=== PATIENT | female | born 1960 | race Caucasian/White ===

== ENCOUNTER 2017-06-23 09:34 | Emergency (ER) | payer OTHER ==
[~2017-06-23] VITALS: Ht 167.6 cm; Wt 45.5 kg
[2017-06-23 09:35] VITALS: BP 129/80; PULSE 98; RESP 16; O2SAT 98
--- NOTE | 2017-06-23 10:00 | ED.REPORT ---
HPI-Dental/Mouth Prob Date of Service Jun 23, 2017 ED Provider: Srikanth Mendoza MD Pt is a 56 year old female presenting to the ED for suture removal. She had 8 teeth removed about 10 days ago, and now complains of gum pain. She wanted to have her sutures removed by her PCP but when she called to make an appointment, they informed her that he doesn't work there any longer and she couldn't get in until July 07. Denies any fever, chills, nausea, vomiting, SOB or wheezing. Nursing Notes Stated Complaint: SUTURE REMOVAL Chief Complaint: Dental Nursing Notes Reviewed: Yes (Tranz not reconciled) Allergies: Coded Allergies: No Known Allergies (Unverified , 06/23/17) General Time Seen by MD: 09:47 Chief Complaint Mouth pain Hx Obtained From: Patient Arrived By: Walk-in Onset Occurred: More than a week ago... (10 days) Symptom Duration: Since onset Quality: Painful Severity: Current: Mild Severity: Maximum: Mild Recent Healthcare: No recent doctor visit, No recent hospitalization Similar Sx Previous: No Past Medical History Past Medical History denies Past Surgical History denies Smoking History Unknown if Ever Smoker Ambulatory Status Independent Review of Systems Constitutional: Denies: Chills, Fever Ears / Nose / Throat: Reports: Mouth pain Respiratory: Denies: Shortness of breath, Wheezing GI: Denies: Nausea, Vomiting Complete sys rev & neg: except as marked. Physical Exam Initial Vital Signs Vital Signs (First) Date Time Temp Pulse Resp B/P Pulse Ox O2 Delivery O2 Flow Rate FiO2 06/23/17 09:35 36.1 98 16 129/80 98 Room Air Initial VS: Reviewed, Vital signs normal Head / Eyes: Atraumatic, Normocephalic, PERRL Respiratory: Breath sounds normal, Clear to auscultation, No respiratory distress Cardiovascular: Intact distal pulses Abdomen / GI: No distention Extremities: Vascular intact, Neuro intact, No swelling, No tenderness Skin: Warm, Dry, No cyanosis Neurologic: Alert, Oriented, Nonfocal Psychiatric: Mood/affect normal, Behavior normal, Normal thought content ENT: Atraumatic, Airway patent, Mucous membranes moist Sutures on gumline and incisor of lower mandible. No signs of infection. Sutures removed uneventfully. Neck: Atraumatic, Supple General/Constitutional: Awake, Alert, No acute distress Appearance / Presentation: Positive: Cachectic Re-Eval/Medical Decision Med Decision/Clinical Course This is a 56-year-old female had dental work done a while ago in [facility], was told she could follow-up with her doctors office to have the sutures removed. However has retired, and the new doctor indicated they would not perform this service. She went to urgent care and indicated they would not do the sutures, she called the dentist indicates she should come to the emergency department. She has no additional complaints except simply need to have the sutures removed. She can get back into her dentist until the 30 of this month. On exam she has healing sutures of the lower incisors. These are removed uneventfully. Wound care is discussed. Patient is discharged in stable condition Source of Hx: Old records Re-Evaluation/Progress : Time of Eval: 10:05 Patient Status: Condition improved Re-Evaluation/Progress Note: Removed sutures. Pt tolerated procedure well. Discussed plan for discharge. Pt understands and agrees with plan. Differential Diagnosis: Negative: Abscess dental, Acute nec ulcer gingivit, Alveolar fracture, Facial cellulitis, Frenulum laceration, Hand, foot, mouth disease Counseled Regarding: Diagnosis, Lab results, Need for follow-up, When/why to return to ED Discharge & Departure Primary Impression: Encounter for removal of sutures Disposition: Home Discharge Condition All VS Reviewed: Yes Condition: Improved Additional Instructions: 1. The sutures from your tooth extraction were removed today. 2. Follow up with your dentist as needed. Referrals: Radha Quiroz DO (PCP) Tato Attestation Portions of this note were transcribed by Susannah Padilla. I, Dr. Mendoza personally performed the history, physical exam and medical decision-making; I reviewed and confirmed the accuracy of the information in the transcribed note. Signed by: Tato Hoskins, 06/23/2017. copies to: Radha Quiroz Matthew F MD Jun 23, 2017 10:00 SUSANNAH PADILLA Jun 23, 2017 10:07
[2017-06-23 10:42] VITALS: BP 129/80; PULSE 98; RESP 16; O2SAT 98
== END 2017-06-23 10:30 | disposition home or self-care (01) ==
LOC: SED 09:34
DX: Z48.02 Encounter for removal of sutures (principal); Z98.818 Other dental procedure status